=== PATIENT | male | born 1990 | race Caucasian/White ===

== ENCOUNTER 2016-09-06 16:33 | Emergency (ER) | payer MEDICAID ==
[~2016-09-06] VITALS: Ht 162.6 cm; Wt 76.7 kg
[2016-09-06 16:48] VITALS: BP 118/64
== END 2016-09-06 18:11 | disposition home or self-care (01) ==
LOC: ED 16:33
DX: S89.91XA Unspecified injury of right lower leg, initial encounter (principal); X58.XXXA Exposure to other specified factors, initial encounter; Y93.66 Activity, soccer; Y92.39 Other specified sports and athletic area as the place of occurrence of the external cause; Y99.8 Other external cause status

== ENCOUNTER 2018-04-12 16:34 | Emergency (ER) | payer SELFPAY ==
[~2018-04-12] VITALS: Ht 162.6 cm; Wt 68.5 kg
[2018-04-12 16:40] VITALS: BP 136/58; Ht 162.6 cm; Wt 68.5 kg
== END 2018-04-12 19:20 | disposition home or self-care (01) ==
LOC: ED 16:34
DX: J11.1 Influenza due to unidentified influenza virus with other respiratory manifestations (principal)
CPT/HCPCS: J1885